=== PATIENT | female | born 1970 | race Caucasian/White ===

== ENCOUNTER 2018-11-11 16:30 | Emergency (ER) | payer MEDICARE ==
[2018-11-11 17:16] LABS: BASO # 0.1 (0.02-0.10); EOS # 0.4 (0.04-0.40); EOS % 5.1 % (1.0-5.0); HEMATOCRIT 39.5 % (37.0-47.0); HEMOGLOBIN 13.2 g/dL (12.5-16.0); LYMPH# 1.9 (1.50-4.00); MEAN CELL VOLUME 89 fl (78-100); MEAN CORPUSCULAR HEMOGLOBIN 30 pg (27-31); MEAN CORPUSCULAR HGB CONC 33 g/dL (33-37); MEAN PLATELET VOLUME 11.8 fl (7.4-10.4); MONO # 0.7 (0.20-0.80); NEU # 5.3 (1.40-6.50); PLATELET COUNT 200 K/mm3 (130-400); RED BLOOD COUNT 4.42 M/mm3 (4.10-5.30); RED CELL DISTRIBUTION WIDTH 15.4 % (11.5-14.5); WHITE BLOOD COUNT 8.5 K/mm3 (4.8-10.8)
[2018-11-11 17:19] LABS: ALBUMIN 3.9 g/dL (3.5-5.0); POTASSIUM 3.8 mmol/L (3.5-5.1)
[2018-11-11 17:20] LABS: CALCIUM 9.1 mg/dL (8.3-10.5)
[2018-11-11 17:21] LABS: TOTAL PROTEIN 6.8 g/dL (6.4-8.3)
[2018-11-11 17:23] LABS: TOTAL BILIRUBIN 0.2 mg/dL (0.2-1.2)
[2018-11-11 17:33] LABS: PROTHROMBIN TIME 8.9 SECONDS (9.0-12.0)
[2018-11-11] MEDS ORDERED: TOPROL XL 25MG25 MG PO (18:39)
[2018-11-11] MEDS ORDERED: LIPITOR 80MG80 MG PO (18:39)
[2018-11-11] MEDS ORDERED: POTASSIUM CHLO20 ME3 PO (18:40)
[2018-11-11] MEDS ORDERED: ASPIRIN E.C. 8181 MG PO (18:40)
[2018-11-11] MEDS ORDERED: COZAAR25 M1 PO (18:41)
[2018-11-11] MEDS ORDERED: ZOLOFT25 M1 PO (18:41)
[2018-11-11] MEDS ORDERED: REQUIP0.25 M1 PO (18:41)
[2018-11-11] MEDS ORDERED: NEURONTIN600 M1 PO (18:42)
[2018-11-11] MEDS ORDERED: CLOPIDOGREL PO (18:42)
[2018-11-11] MEDS ORDERED: CYCLOBENZAPRINE10 M1 PO (21:02)
[2018-11-11] MEDS ORDERED: ZANTAC 7575 M1 PO (21:05)
[2018-11-11 21:17] VITALS: BP 114/82
== END 2018-11-11 21:17 | disposition home or self-care (01) ==
LOC: ED 16:30
PROVIDERS: Nurse Practitioner Primary Care
DX: K21.9 Gastro-esophageal reflux disease without esophagitis (principal); R07.9 Chest pain, unspecified; M62.830 Muscle spasm of back; I10 Essential (primary) hypertension; Z90.49 Acquired absence of other specified parts of digestive tract; Z95.5 Presence of coronary angioplasty implant and graft; Z88.0 Allergy status to penicillin; Z79.82 Long term (current) use of aspirin; Z79.02 Long term (current) use of antithrombotics/antiplatelets
CPT/HCPCS: J1885; J2270; J2405